=== PATIENT | male | born 1980 | race Caucasian/White ===

== ENCOUNTER 2017-08-05 21:03 | Emergency (ER) | payer OTHER ==
[~2017-08-05] VITALS: Ht 167.6 cm; Wt 92.1 kg
[2017-08-05 21:15] VITALS: Ht 167.6 cm; Wt 92.1 kg
[2017-08-06 02:09] VITALS: BP 138/97
== END 2017-08-06 03:00 | disposition left against medical advice (07) ==
LOC: ED 21:03
DX: R19.7 Diarrhea, unspecified (principal); R10.9 Unspecified abdominal pain; F41.9 Anxiety disorder, unspecified